=== PATIENT | female | born 1965 | race African-American/Black ===

== ENCOUNTER 2018-08-29 14:02 | Observation (INO) | payer BC ==
--- NOTE | 2018-08-29 14:18 | PDOC ---
Rapid Medical Evaluation Chief Complaint: Chest Pain Time Seen by Provider: 08/29/18 14:12 Medical Evaluation: Allergies Allergy/AdvReac Type Severity Reaction Status Date / Time egg Allergy Verified 08/29/18 14:14 gluten Allergy Verified 08/29/18 14:14 soy Allergy Verified 08/29/18 14:14 Vital Signs Temp Pulse Resp BP Pulse Ox 98.2 F 78 16 124/84 100 08/29/18 14:11 08/29/18 14:11 08/29/18 14:11 08/29/18 14:11 08/29/18 14:11 08/29/18 14:15 I have performed a brief in-person evaluation of this patient. The patient presents with a chief complaint of: chest pain and SOB for 2 months s/p cervical fusion on Jun. Saw PCP who is concerned about possible PE due to surgery. Denies SOB,dizziness, MCKINNEY, sweats. N/V Pertinent physical exam findings: no acute distress. heart RRR. lungs CTA b/l I have ordered the following: CBC/CMP/tropinins. D-dimer. CXR. EKG The patient will proceed to the ED for further evaluation. 08/29/18 14:18 Discharge Disposition - Diagnosis Chest pain Qualifiers: Chest pain type: unspecified Qualified Code(s): R07.9 - Chest pain, unspecified - Referrals - Patient Instructions - Post Discharge Activity
[2018-08-29 14:34] LABS: BASO % 0.5 % (0-2.0); EOS % 0.6 % (0-4.5); HEMATOCRIT 36.2 % (32.4-45.2); HEMOGLOBIN 11.8 GM/dL (10.7-15.3); LYMPH % 46.2 % (8-40); MCH 27.9 pg (25.7-33.7); MCHC 32.7 g/dl (32.0-36.0); MEAN CELL VOLUME 85.4 fl (80-96); MEAN PLT VOLUME 8.8 fl (7.5-11.1); MONO % 7.7 % (3.8-10.2); PLATELET COUNT 218 K/MM3 (134-434); RBC 4.23 M/mm3 (3.60-5.2); RDW 16.6 % (11.6-15.6); WHITE BLOOD COUNT 4.9 K/mm3 (4.0-10.0)
--- NOTE | 2018-08-29 14:42 | PDOC ---
History of Present Illness - General Chief Complaint: Chest Pain Stated Complaint: CHEST PAIN Time Seen by Provider: 08/29/18 14:12 History Source: Patient Exam Limitations: No Limitations - History of Present Illness Initial Comments: 08/29/18 14:44 53 year old with history of pericarditis (2013), GERD, dysmenorrhea, anemia, systolic heart murmurs and recent anterior cervical discectomy on June 13 who presents with L sided upper back pain radiating to the lower back. The pain is worse with movement and with palpation of the L back. The pain is described as sharp, stabbing, 8/10 pain and at night 10/10. She has some shortness of breath at night and when climbing stairs. The patient had this pain post- operatively and was treated with protonix with moderate relief. The patient's pain has continued but has not worsened since onset. She was evaluated previous and the pain was thought to be due to musculoskeletal pain. She does not actively more her limbs dude to her spinal history. The patient has neck herniation, spinal cord compression, concussion and lumbar hernation in Dec 2017 2/2 to fall. The patient went to PCP (Jose Francisco) today for the same L sided back pain ad PCP was concerned about r/o PE as the patient had recent surgery. At baseline the patient has some numbness and tingling in the R arm and now with intermittent L arm numbness and tingling since the June surgery. The patient denies chest pain, abdominal pain, nausea, vomiting, lightheadedness , syncope, headaches or recent fever. She has no other complaints at bedside. PMHX: as in HPI PSHX: see below Meds: see below Allergies: egg, gluten, soy Tob: none Etoh: none Rec drugs:none PCP: Osiel Past History - Past Medical History Allergies/Adverse Reactions: Allergies Allergy/AdvReac Type Severity Reaction Status Date / Time egg Allergy Verified 08/29/18 14:14 gluten Allergy Verified 08/29/18 14:14 soy Allergy Verified 08/29/18 14:14 - Suicide/Smoking/Psychosocial Hx Smoking History: Never smoked Have you smoked in the past 12 months: No Information on smoking cessation initiated: No Hx Alcohol Use: No Drug/Substance Use Hx: No Review of Systems - Review of Systems Able to Perform ROS?: Yes Is the patient limited Yi proficient: No Constitutional: No: Chills, Diaphoresis, Fever HEENTM: No: Blurred Vision, Tinnitus Respiratory: Yes: Shortness of Breath. No: Cough, Orthopnea Cardiac (ROS): No: Chest Pain, Palpitations, Chest Tightness ABD/GI: No: Constipated, Diarrhea, Nausea, Vomiting : No: Burning, Dysuria, Hematuria Musculoskeletal: Yes: Back Pain, Muscle Pain Neurological: Yes: See HPI, Numbness, Paresthesia, Tingling. No: Headache *Physical Exam - Vital Signs Last Vital Signs Temp Pulse Resp BP Pulse Ox 98.2 F 78 16 124/84 100 08/29/18 14:11 08/29/18 14:11 08/29/18 14:11 08/29/18 14:11 08/29/18 14:11 - Physical Exam Comments: 08/29/18 14:44 GENERAL: Awake, alert, and fully oriented, in no acute distress HEAD: No signs of trauma, normocephalic, atraumatic EYES: EOMI, sclera anicteric, conjunctiva clear ENT: Auricles normal inspection, hearing grossly normal, nares patent, oropharynx clear without exudates. Moist mucosa NECK: soft neck collar. LUNGS: No distress, speaks full sentences, clear to auscultation bilaterally HEART: Regular rate and rhythm, normal S1 and S2, no murmurs, rubs or gallops, peripheral pulses normal and equal bilaterally. ABDOMEN: Soft, nontender, normoactive bowel sounds. No guarding, no rebound. No masses BACK: + L upper back tenderness to palpation, baseline limited ROM of L and R shoulder, + approx L2/3 lumbar spine tenderness to palpation EXTREMITIES : Normal inspection, Normal range of motion, no edema. No clubbing or cyanosis. NEUROLOGICAL: Cranial nerves II through XII grossly intact. Normal speech, normal gait, no focal sensorimotor deficits SKIN: Warm, Dry, normal turgor, no rashes or lesions noted ED Treatment Course - LABORATORY CBC & Chemistry Diagram: 08/29/18 14:24 08/29/18 14:24 Medical Decision Making - Medical Decision Making 08/29/18 14:42 53 year old with history of pericarditis (2013), GERD, dysmenorrhea, anemia, systolic heart murmurs and recent anterior cervical discectomy on June 13 who presents with L sided upper back pain radiating to the lower back. The pain is worse with movement and with palpation of the L back. The pain is described as sharp, stabbing, 8/10 pain and at night 10/10. She has some shortness of breath at night and when climbinb stairs. The patient had this pain post- operatively and was treated with protonix with moderate relief. The patient's pain has continued but has not worsened since onset. She was evaluated previous and the pain was thought to be due to musculoskeletal pain. She does not actively more her limbs dude to her spinal history. The patient has neck herniation, spinal cord compression, concussion and lumbar hernation in Dec 2017 2/ to fall. The patient went to PCP (Jose Francisco) today for the same L sided back pain ad PCP was concerned about r/o PE as the patient had recent surgery. The patient denies chest pain, abdominal pain, nausea, vomiting, lightheadedness, syncope, headaches or recent fever. She has no other complaints at bedside. DDX including but not limited to: ACS vs musculoskeletal vs PE vs pleuritis W/U: - cbc, cmp, cardiac profile - CXR Scores: PERC:1, ED Course: EKG normal sinus rhythm HR 62, no interval abnormalities, narrow QRS, ST and T wave segments and morphology normal. QTc 414 ms. 08/29/18 16:02 D-dimer: 4002 CTA chest ordered. 08/29/18 18:50 CTA: small pulmonary emboli within subsegmental branches or R lower lobe pulm artery, posteriorly. PCP: Juna contacted to evaluate if PCP would like to follow patient outpt or if admission is desired. Patient is hemodynamically stable. Lovenox 100mg administered. 08/29/18 19:32 *DC/Admit/Observation/Transfer Diagnosis at time of Disposition: Back pain - Discharge Dispostion Disposition: HOME Condition at time of disposition: Stable - Referrals Referrals: Aminata Felton MD [Primary Care Provider] - - Patient Instructions Printed Discharge Instructions: DI for Atypical Chest Pain Additional Instructions: You were seen in the ED for complaints of L back pain. In the ED you were evaluated with labwork and imaging. Your results were unremarkable. There does not appear to be an acute need for immediate hospitalization. You are advised to follow up with your Primary Care Physician within 1 week. You were given a referral to You were given a prescription for Return to the ED immediately if you experience worsening chest pain, shortness of breath, back pain, syncope, palpitations, sweating, loss of consciousness or nausea. - Post Discharge Activity
[2018-08-29 15:11] LABS: ALBUMIN 3.9 g/dl (3.4-5.0); ALK PHOS 136 U/L (45-117); ANION GAP 6 MMOL/L (8-16); BILIRUBIN,TOTAL 0.5 mg/dL (0.2-1); BLOOD UREA NITROGEN 10 mg/dL (7-18); CALCIUM 8.9 mg/dL (8.5-10.1); CHLORIDE 106 mmol/L (98-107); CO2 26 mmol/L (21-32); CREATININE 0.8 mg/dL (0.55-1.3); GLUCOSE,RANDOM 89 mg/dL (74-106); POTASSIUM 3.7 mmol/L (3.5-5.1); SGOT/AST 25 U/L (15-37); SGPT/ALT 35 U/L (13-61); SODIUM 138 mmol/L (136-145); TOT PROT 8.2 g/dl (6.4-8.2)
--- NOTE | 2018-08-29 16:21 | PDOC ---
Attending Attestation - Resident Resident Name: Marie Chavez - ED Attending Attestation I have performed the following: I have examined & evaluated the patient, The case was reviewed & discussed with the resident, I agree w/resident's findings & plan - HPI HPI: 08/29/18 16:16 53y/o F h/o pericarditis, GERD, s/p cervical discectomy 06/24 p/w atypical and pleuritic L chest pain, no cough/palpitations. - Physicial Exam PE: 08/29/18 16:16 VSS, no tachycardia, c-collar in place alert, conversant, nad no jvd s1s2 rrr, no murmur or rub ctab, no wheeze or crackles no edema/calf ttp - Medical Decision Making 08/29/18 16:21 53-year-old female presents with atypical left pleuritic chest discomfort, atypical for ACS, question pericarditis versus pleuritis versus infectious process, rule out PE given recent post-op status. ekg wnl, no findings suggestive of pericarditis labs including ddimer cxr bedside sono to r/o pericardial effusion reassess and dispo accordingly. 08/29/18 16:24 trop negative, no leukocytosis, ddimer elevated. CTA chest then dispo to f/u with Dr. Rocha Heart Score/ECG Review #1 ECG reviewed & interpreted by me at: 14:03 General ECG Interpretation: Sinus Rhythm, Normal Rate (62), Normal Intervals ( qtc 414), No acute ischemic changes
[2018-08-29] MEDS ORDERED: ENOXAPARIN NA (PORCINE) 100 MG/1 ML DISP.SYRIN SQ ONE ×2 (18:57→20:28)
[2018-08-29] MEDS ORDERED: ACETAMINOPHEN 500 MG TABLET (FP) PO ONE (20:10)
--- NOTE | 2018-08-29 20:10 | PDOC ---
*Physical Exam - Vital Signs Last Vital Signs Temp Pulse Resp BP Pulse Ox 98.2 F 78 16 124/84 100 08/29/18 14:11 08/29/18 14:11 08/29/18 14:11 08/29/18 14:11 08/29/18 14:11 - Physical Exam Comments: 08/30/18 20:05 General Appearance: Nourished. No Apparent Distress HEENT: No Pharyngeal Erythema, Tonsillar Exudate, Tonsillar Erythema Neck: No Cervical Lymphadenopathy Respiratory/Chest: Lungs Clear, Normal Breath Sounds. No Crackles, Rales, Rhonchi, Wheezing Cardiovascular: Regular Rhythm, Regular Rate. No Murmur, Gallops, Rubs Gastrointestinal/Abdominal: Normal Bowel Sounds, Soft. No Guarding, Rebound, Tenderness Musculoskeletal: No CVA Tenderness Extremity: Normal Capillary Refill Integumentary: Normal Color, Dry, Warm Neurologic: Fully Oriented, Alert, Normal Mood/Affect, Normal Response, ED Treatment Course - LABORATORY CBC & Chemistry Diagram: 08/30/18 10:13 08/30/18 10:13 - ADDITIONAL ORDERS Additional order review: Laboratory Results 08/29/18 08/29/18 14:24 14:24 D-Dimer 4007 H Sodium 138 Potassium 3.7 Chloride 106 Carbon Dioxide 26 Anion Gap 6 L BUN 10 Creatinine 0.8 Creat Clearance w eGFR > 60 Random Glucose 89 Calcium 8.9 Total Bilirubin 0.5 AST 25 ALT 35 Alkaline Phosphatase 136 H Creatine Kinase 96 Troponin I < 0.02 Total Protein 8.2 Albumin 3.9 08/29/18 14:24 RBC 4.23 MCV 85.4 MCHC 32.7 RDW 16.6 H MPV 8.8 Neutrophils % 45.0 Lymphocytes % 46.2 H Monocytes % 7.7 Eosinophils % 0.6 Basophils % 0.5 Progress Note - Progress Note Progress Note: The patient is a 53 year old female with a complicated medical history who presented for back pain found to have a PE. The patient is pending discussion with the patient's primary care provider. Medical Decision Making - Medical Decision Making 08/29/18 20:06 We discussed the case with the patient's primary care provider who would be more comfortable admitting to the patient for further management as the patient has a history of non-compliance. We discussed the case with the admitting team who accepted the patient for admission. *DC/Admit/Observation/Transfer Diagnosis at time of Disposition: Back pain Qualifiers: Back pain location: back pain in unspecified location Chronicity: unspecified Back pain laterality: unspecified Qualified Code(s): M54.9 - Dorsalgia, unspecified Pulmonary embolism Qualifiers: Pulmonary embolism type: other Chronicity: unspecified Acute cor pulmonale presence: without acute cor pulmonale Qualified Code(s): I26.99 - Other pulmonary embolism without acute cor pulmonale - Discharge Dispostion Condition at time of disposition: Stable Decision to Admit order: Yes - Referrals - Patient Instructions - Post Discharge Activity
[2018-08-29] MEDS ORDERED: ACETAMINOPHEN 325 MG TABLET (FP) ONE (20:28)
--- NOTE | 2018-08-30 01:29 | HP ---
CHIEF COMPLAINT: L upper back pain PCP: Jose Francisco HISTORY OF PRESENT ILLNESS: This is a 53 year old female with a past medical history of recent anterior cervical discectomy in June who presented to the ED with Left upper back pain radiating to her lower back intermittently since the surgery. She was treated with protonix postoperatively with some relief. she presented to her PCP today who sent her in to r/o PE. ER course was notable for: (1) CTA with PE Recent Travel: pt denies PAST MEDICAL HISTORY: neck herniation, spinal cord compression, concussion and lumbar herniation in Dec 2017 secondary to fall with resultant post concussive syndrome; pericarditis 2013, GERD, dysmenorrhea, anemia, heart murmur PAST SURGICAL HISTORY: anterior cervical discectomy June 2018 tubal ligation Social History: Smoking: pt denies Alcohol: pt denies Drugs: pt denies Family History: mother with HTN, father with HTN sister with childhood asthma one son with childhood asthma Allergies egg Allergy (Verified 08/29/18 14:14) gluten Allergy (Verified 08/29/18 14:14) soy Allergy (Verified 08/29/18 14:14) HOME MEDICATIONS: 3 Medication Instructions Recorded Donepezil HCl [Aricept] 5 mg PO HS 08/29/18 Methocarbamol [Robaxin -] 250 mg PO HS 08/29/18 Omeprazole Magnesium [Prilosec Otc] 20 mg PO DAILY 08/29/18 Pregabalin [Lyrica] 50 mg PO DAILY 08/29/18 Topiramate [Topamax] 25 mg PO HS 08/29/18 REVIEW OF SYSTEMS CONSTITUTIONAL: Absent: fever, chills, diaphoresis, generalized weakness, malaise, loss of appetite, weight change HEENT: Absent: rhinorrhea, nasal congestion, throat pain, throat swelling, difficulty swallowing, mouth swelling, ear pain, eye pain, visual changes CARDIOVASCULAR: Absent: chest pain, syncope, palpitations, irregular heart rate, lightheadedness , peripheral edema RESPIRATORY: Absent: cough, shortness of breath, dyspnea with exertion, orthopnea, wheezing, stridor, hemoptysis GASTROINTESTINAL: Absent: abdominal pain, abdominal distension, nausea, vomiting, diarrhea, constipation, melena, hematochezia GENITOURINARY: Absent: dysuria, frequency, urgency, hesitancy, hematuria, flank pain, genital pain MUSCULOSKELETAL: Present: back pain Absent: myalgia, arthralgia, joint swelling, neck pain SKIN: Absent: rash, itching, pallor HEMATOLOGIC/IMMUNOLOGIC: Absent: easy bleeding, easy bruising, lymphadenopathy, frequent infections ENDOCRINE: Absent: unexplained weight gain, unexplained weight loss, heat intolerance, cold intolerance NEUROLOGIC: Absent: headache, focal weakness or paresthesias, dizziness, unsteady gait, seizure, mental status changes, bladder or bowel incontinence PSYCHIATRIC: Absent: anxiety, depression, suicidal or homicidal ideation, hallucinations. PHYSICAL EXAMINATION Vital Signs - 24 hr 3 08/29/18 08/29/18 14:11 19:30 Temperature 98.2 F Pulse Rate 78 Pulse Rate [ 74 Radial] Respiratory 16 20 Rate Blood Pressure 124/84 Blood Pressure 122/81 [Left Arm] O2 Sat by Pulse 100 100 Oximetry (%) GENERAL: Awake, alert, and fully oriented, in no acute distress. HEAD: Normal with no signs of trauma. EYES: Pupils equal, round and reactive to light, extraocular movements intact, sclera anicteric, conjunctiva clear. No lid lag. EARS, NOSE, THROAT: Ears normal, nares patent, oropharynx clear without exudates. Moist mucous membranes. NECK: Normal range of motion, supple without lymphadenopathy, JVD, or masses. soft cervical collar in place LUNGS: Breath sounds equal, clear to auscultation bilaterally. No wheezes, and no crackles. No accessory muscle use. HEART: Regular rate and rhythm, normal S1 and S2 without murmur, rub or gallop. ABDOMEN: Soft, nontender, not distended, normoactive bowel sounds, no guarding, no rebound, no masses. No hepatomegaly or splenomegaly. MUSCULOSKELETAL: Normal range of motion at all joints. No bony deformities or tenderness. No CVA tenderness. UPPER EXTREMITIES: 2+ pulses, warm, well-perfused. No cyanosis. No clubbing. No peripheral edema. LOWER EXTREMITIES: 2+ pulses, warm, well-perfused. No calf tenderness. No peripheral edema. NEUROLOGICAL: Cranial nerves II-XII intact. Normal speech. PSYCHIATRIC: Cooperative. Good eye contact. Appropriate mood and affect. SKIN: Warm, dry, normal turgor, no rashes or lesions noted, normal capillary refill. Laboratory Results - last 24 hr 3 08/29/18 08/29/18 08/29/18 14:24 14:24 14:24 WBC 4.9 RBC 4.23 Hgb 11.8 Hct 36.2 MCV 85.4 MCH 27.9 MCHC 32.7 RDW 16.6 H Plt Count 218 MPV 8.8 Absolute Neuts (auto) 2.2 Neutrophils % 45.0 Lymphocytes % 46.2 H Monocytes % 7.7 Eosinophils % 0.6 Basophils % 0.5 Nucleated RBC % 0 D-Dimer 4007 H Sodium 138 Potassium 3.7 Chloride 106 Carbon Dioxide 26 Anion Gap 6 L BUN 10 Creatinine 0.8 Creat Clearance w eGFR > 60 Random Glucose 89 Calcium 8.9 Total Bilirubin 0.5 AST 25 ALT 35 Alkaline Phosphatase 136 H Creatine Kinase 96 Troponin I < 0.02 Total Protein 8.2 Albumin 3.9 ECG normal sinus rhythm vent rate 62, QTC 414 low voltage QRS no acute ST/T wave changes Radiology Reports CTA IMPRESSION: Small pulmonary emboli within the subsegmental branches of the right lower lobe pulmonary artery, posteriorly. No gross pulmonary embolus in the main pulmonary artery and its proximal branches, bilaterally. No enlarged mediastinal or hilar lymph nodes are identified. No acute lung disease is present. Reported By: Matt Rodriguez MD 08/29/18 1831 Chest PA/Lat Impression Unremarkable examination without evidence of acute lung disease. Reported By: Matt Rodriguez MD 08/29/18 1644 ASSESSMENT/PLAN: 53yF with PMH neck herniation, spinal cord compression, concussion and lumbar herniation in Dec 2017 secondary to fall with resultant post concussive syndrome ; anterior discectomy 06/2018, pericarditis 2013, GERD, dysmenorrhea, anemia, heart murmur presented to the ED with left upper back pain radiating to her lower back. PE - given lovenox in ED - will start pt on Eliquis in am, 10mg BID x 7 days then 5mg BID - consider hematology consult GERD - home omeprazole changed to formulary protonix Neck pain s/p anterior cervical discectomy - cont home robaxin, lyrica, tylenol DVT PPX - started on eliquis FEN - tolerating po - BMP in am - regular diet as tolerated Dispo: pt requires further observation. Visit type - Emergency Visit Emergency Visit: Yes ED Registration Date: 08/29/18 Care time: The patient presented to the Emergency Department on the above date and was hospitalized for further evaluation of their emergent condition. - New Patient This patient is new to me today: Yes Date on this admission: 08/29/18 - Critical Care Critical Care patient: No
[2018-08-30] MEDS ORDERED: PREGABALIN 50 MG CAPSULE PO PRN (02:01)
[2018-08-30] MEDS ORDERED: METHOCARBAMOL 500 MG TABLET ONE (02:23)
[2018-08-30] MEDS: TOPIRAMATE 25 MG TABLET (FP) PO SCH ×2 (02:29→22:32)
[2018-08-30] MEDS: METHOCARBAMOL 500 MG TABLET PO SCH ×2 (02:29→22:32)
[2018-08-30] MEDS ORDERED: TOPIRAMATE 25 MG TABLET (FP) ONE (02:33)
[2018-08-30] MEDS ORDERED: ACETAMINOPHEN 325 MG TABLET (FP) ONE (06:14)
[2018-08-30] MEDS: ACETAMINOPHEN 500 MG TABLET (FP) PO SCH ×3 (06:43→22:33)
[2018-08-30] MEDS ORDERED: diphenhydrAMINE HCL 25 MG CAPSULE (FP) PO PRN (10:09)
[2018-08-30 10:25] LABS: BASO % 0.6 % (0-2.0); EOS % 0.8 % (0-4.5); HEMATOCRIT 33.5 % (32.4-45.2); HEMOGLOBIN 11.1 GM/dL (10.7-15.3); LYMPH % 42.2 % (8-40); MCH 28.2 pg (25.7-33.7); MCHC 33.1 g/dl (32.0-36.0); MEAN CELL VOLUME 85.1 fl (80-96); MEAN PLT VOLUME 9.3 fl (7.5-11.1); MONO % 8.7 % (3.8-10.2); NEUT % 47.7 % (42.8-82.8); PLATELET COUNT 210 K/MM3 (134-434); RBC 3.94 M/mm3 (3.60-5.2); RDW 16.1 % (11.6-15.6); WHITE BLOOD COUNT 4.6 K/mm3 (4.0-10.0)
[2018-08-30] MEDS ORDERED: diphenhydrAMINE HCL 12.5 MG/5 ML BULK BOTTLE ONE (10:43)
[2018-08-30 10:54] LABS: ANION GAP 8 MMOL/L (8-16); BLOOD UREA NITROGEN 13 mg/dL (7-18); CALCIUM 8.6 mg/dL (8.5-10.1); CHLORIDE 106 mmol/L (98-107); CO2 26 mmol/L (21-32); CREATININE 0.8 mg/dL (0.55-1.3); GLUCOSE,RANDOM 118 mg/dL (74-106); MAGNESIUM 2.2 mg/dL (1.8-2.4); PHOSPHOROUS 2.9 mg/dL (2.5-4.9); POTASSIUM 3.7 mmol/L (3.5-5.1); SODIUM 140 mmol/L (136-145)
[2018-08-30] MEDS: PANTOPRAZOLE 20 MG TABLET (FP) PO SCH (10:54)
[2018-08-30] MEDS: APIXABAN 5 MG TABLET PO SCH ×2 (10:54→22:32)
--- NOTE | 2018-08-30 11:49 | CONSULT ---
Consultation: REQUESTING PROVIDER: Dr. Morocho CONSULT REQUEST: We have been asked to medically evaluate this patient for pulmonology evaluation for PE. HISTORY OF PRESENT ILLNESS: 53 yo Female with PMH GERD, Dysmenorrhea, Anemia, recent anterior cervical discectomy in June of this year, admitted with a complaint of left sided back pain which is worse with deep inspiration and a dry cough. She suffered a fall in November of this year and has had back pain and neck pain since. 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 She states that she has had this discomfort off and on since the surgery, it occasionally wakes her up at night and she decribes those episodes as 10/10 pain. She states she saw two doctors as an outpatient and was treated for GERD with some improvement of symptoms and was also treated for musculoskeletal pain again with minimal improvement of symptoms. She went for another opinion and was sent in by that physician with a concern for a PE. She denies any fever, chills, calf swelling or tenderness. She denies any family history of clotting disorders or any DVT or PEs in the past. REVIEW OF SYSTEMS: CONSTITUTIONAL: Absent: fever, chills, diaphoresis, generalized weakness, malaise, loss of appetite, weight change HEENT: Absent: rhinorrhea, nasal congestion, throat pain, throat swelling, difficulty swallowing, mouth swelling, ear pain, eye pain, visual changes CARDIOVASCULAR: Absent: chest pain, syncope, palpitations, irregular heart rate, lightheadedness , peripheral edema RESPIRATORY: cough Absent: , shortness of breath, dyspnea with exertion, orthopnea, wheezing, stridor, hemoptysis GASTROINTESTINAL: Absent: abdominal pain, abdominal distension, nausea, vomiting, diarrhea, constipation, melena, hematochezia GENITOURINARY: Absent: dysuria, frequency, urgency, hesitancy, hematuria, flank pain, genital pain MUSCULOSKELETAL: back pain, neck pain Absent: myalgia, arthralgia, joint swelling, SKIN: Absent: rash, itching, pallor HEMATOLOGIC/IMMUNOLOGIC: Absent: easy bleeding, easy bruising, lymphadenopathy, frequent infections ENDOCRINE: Absent: unexplained weight gain, unexplained weight loss, heat intolerance, cold intolerance NEUROLOGIC: Absent: headache, focal weakness or paresthesias, dizziness, unsteady gait, seizure, mental status changes, bladder or bowel incontinence PSYCHIATRIC: Absent: anxiety, depression, suicidal or homicidal ideation, hallucinations. PHYSICAL EXAMINATION Vital Signs - 24 hr 08/29/18 08/29/18 08/30/18 14:11 19:30 10:50 Temperature 98.2 F 98.2 F Pulse Rate 78 85 Pulse Rate [ 74 Radial] Respiratory 16 20 18 Rate Blood Pressure 124/84 105/70 Blood Pressure 122/81 [Left Arm] O2 Sat by Pulse 100 100 Oximetry (%) GENERAL: A&O, no acute distress HEENT: normocephalic atraumatic, moist mucus membranes NECK: supple without lymphadenopathy LUNGS: CTA b/l, no rhonchi or wheezes HEART: Regular rate and rhythm, normal S1 and S2 ABDOMEN: Soft, nontender, not distended, normoactive bowel sounds MUSCULOSKELETAL: No spinal point tenderness EXTREMITIES: 2+ pulses, no calf tenderness or swelling Laboratory Results - last 24 hr 08/29/18 08/29/18 08/29/18 14:24 14:24 14:24 WBC 4.9 RBC 4.23 Hgb 11.8 Hct 36.2 MCV 85.4 MCH 27.9 MCHC 32.7 RDW 16.6 H Plt Count 218 MPV 8.8 Absolute Neuts (auto) 2.2 Neutrophils % 45.0 Lymphocytes % 46.2 H Monocytes % 7.7 Eosinophils % 0.6 Basophils % 0.5 Nucleated RBC % 0 D-Dimer 4007 H Sodium 138 Potassium 3.7 Chloride 106 Carbon Dioxide 26 Anion Gap 6 L BUN 10 Creatinine 0.8 Creat Clearance w eGFR > 60 Random Glucose 89 Calcium 8.9 Phosphorus Magnesium Total Bilirubin 0.5 AST 25 ALT 35 Alkaline Phosphatase 136 H Creatine Kinase 96 Troponin I < 0.02 Total Protein 8.2 Albumin 3.9 08/30/18 08/30/18 10:13 10:13 WBC 4.6 RBC 3.94 Hgb 11.1 Hct 33.5 MCV 85.1 MCH 28.2 MCHC 33.1 RDW 16.1 H Plt Count 210 MPV 9.3 Absolute Neuts (auto) 2.2 Neutrophils % 47.7 Lymphocytes % 42.2 H Monocytes % 8.7 Eosinophils % 0.8 Basophils % 0.6 Nucleated RBC % 0 D-Dimer Sodium 140 Potassium 3.7 Chloride 106 Carbon Dioxide 26 Anion Gap 8 BUN 13 Creatinine 0.8 Creat Clearance w eGFR > 60 Random Glucose 118 H Calcium 8.6 Phosphorus 2.9 Magnesium 2.2 Total Bilirubin AST ALT Alkaline Phosphatase Creatine Kinase Troponin I Total Protein Albumin Active Medications Generic Name Dose Route Start Last Admin Trade Name Freq PRN Reason Stop Dose Admin Acetaminophen 500 mg 08/30/18 06:00 08/30/18 06:43 Tylenol - PO 500 mg TID JESSICA Administration Apixaban 10 mg 08/30/18 10:00 08/30/18 10:54 Eliquis - PO 09/06/18 09:59 10 mg BID JESSICA Administration Diphenhydramine HCl 12.5 mg 08/30/18 10:09 08/30/18 10:55 Benadryl - PO 12.5 mg Q6H PRN Administration FOR ITCHING Donepezil HCl 5 mg 08/30/18 22:00 Aricept - PO HS JESSICA Methocarbamol 250 mg 08/30/18 02:01 08/30/18 02:29 Robaxin - PO 250 mg HS JESSICA Administration Pantoprazole Sodium 20 mg 08/30/18 10:00 08/30/18 10:54 Protonix - PO 20 mg DAILY JESSICA Administration Pregabalin 50 mg 08/30/18 02:01 Lyrica - PO DAILY PRN PAIN LEVEL 4 - 6 Topiramate 25 mg 08/30/18 02:01 08/30/18 02:29 Topamax - PO 25 mg HS JESSICA Administration ASSESSMENT/PLAN: 53 yo Female with PMH GERD, Dysmenorrhea, Anemia, recent anterior cervical discectomy in June of this year, admitted with a complaint of left sided back pain which is worse with deep inspiration and a dry cough, found to have small subsegmental PE in RLL Provoked PE -Likely provoked - Post-op with symptoms since June -CT noted with small subsegmental Pulmonary embolus in branches of RLL posteriorly -Eliquis 10 mg PO BID for one week then 5 mg PO BID for 3 months -ECHO ordered -Duplex ordered GERD -Protonix Neck/Back Pain -Continue home meds -Robaxin 250 mg PO HS -Lyrica 25 mg PO Daily -Tylenol PRN FEN -none -no abnormalities, BMP in AM -Gluten restricted Diet Prophylaxis -Eliquis as above Dispo: We will continue to follow the patient. Thank you for this consultative opportunity. Visit type - Emergency Visit Emergency Visit: Yes ED Registration Date: 08/29/18 Care time: The patient presented to the Emergency Department on the above date and was hospitalized for further evaluation of their emergent condition. - New Patient This patient is new to me today: Yes Date on this admission: 08/30/18 - Critical Care Critical Care patient: No
--- NOTE | 2018-08-30 13:04 | PN ---
Progress Note, Physician - Current Medication List Current Medications: Active Medications Acetaminophen (Tylenol -) 500 mg PO TID [facility] Last Admin: 08/30/18 06:43 Dose: 500 mg Apixaban (Eliquis -) 10 mg PO BID [facility] Stop: 09/06/18 09:59 Last Admin: 08/30/18 10:54 Dose: 10 mg Diphenhydramine HCl (Benadryl -) 12.5 mg PO Q6H PRN PRN Reason: FOR ITCHING Last Admin: 08/30/18 10:55 Dose: 12.5 mg Donepezil HCl (Aricept -) 5 mg PO HS [facility] Methocarbamol (Robaxin -) 250 mg PO [facility] Last Admin: 08/30/18 02:29 Dose: 250 mg Pantoprazole Sodium (Protonix -) 20 mg PO DAILY [facility] Last Admin: 08/30/18 10:54 Dose: 20 mg Pregabalin (Lyrica -) 50 mg PO DAILY PRN PRN Reason: PAIN LEVEL 4 - 6 Topiramate (Topamax -) 25 mg PO [facility] Last Admin: 08/30/18 02:29 Dose: 25 mg - Objective Vital Signs: Vital Signs Temperature 98.2 F 08/30/18 10:50 Pulse Rate 85 08/30/18 10:50 Respiratory Rate 18 08/30/18 10:50 Blood Pressure 105/70 08/30/18 10:50 O2 Sat by Pulse Oximetry (%) 100 08/30/18 10:50 Labs: CBC, BMP 08/30/18 10:13 08/30/18 10:13
--- NOTE | 2018-08-30 13:04 | HP ---
Admitting History and Physical - Smoking History Smoking history: Never smoked Have you smoked in the past 12 months: No - Alcohol/Substance Use Hx Alcohol Use: No Home Medications - Allergies Allergies/Adverse Reactions: Allergies Allergy/AdvReac Type Severity Reaction Status Date / Time egg Allergy Verified 08/29/18 14:14 gluten Allergy Verified 08/29/18 14:14 soy Allergy Verified 08/29/18 14:14 - Home Medications Home Medications: Ambulatory Orders Donepezil HCl [Aricept] 5 mg PO HS 08/29/18 Methocarbamol [Robaxin -] 250 mg PO HS 08/29/18 Omeprazole Magnesium [Prilosec Otc] 20 mg PO DAILY 08/29/18 Pregabalin [Lyrica] 25 mg PO DAILY 08/29/18 Topiramate [Topamax] 25 mg PO HS 08/29/18 Physical Examination Vital Signs: Vital Signs Temperature 98.2 F 08/30/18 10:50 Pulse Rate 85 08/30/18 10:50 Respiratory Rate 18 08/30/18 10:50 Blood Pressure 105/70 08/30/18 10:50 O2 Sat by Pulse Oximetry (%) 100 08/30/18 10:50 Labs: CBC, BMP 08/30/18 10:13 08/30/18 10:13
--- NOTE | 2018-08-30 15:16 | EKG ---
Test Reason : Blood Pressure : / mmHG Vent. Rate : 062 BPM Atrial Rate : 062 BPM P-R Int : 170 ms QRS Dur : 076 ms QT Int : 408 ms P-R-T Axes : 076 028 058 degrees QTc Int : 414 ms NORMAL SINUS RHYTHM LOW VOLTAGE QRS BORDERLINE ECG NO PREVIOUS ECGS AVAILABLE Confirmed by LILIANA HI MD ([id number]) on 08/30/2018 3:16:00 PM Referred By: Confirmed By:LILIANA HI MD
--- NOTE | 2018-08-30 15:25 | PN ---
Teaching Attending Note Name of Resident: Sam Obando ATTENDING PHYSICIAN STATEMENT I saw and evaluated the patient. I reviewed the resident's note and discussed the case with the resident. I agree with the resident's findings and plan as documented. PULMONARY IMP RLL SUBSEGMENTAL PE PROVOKED S/P C-SPINE SURGERY H/O PERICARDITIS PLAN ELIQUIS DUPLEX LOWER EXT ECHO DR SANDRA Problem List - Problems (1) Pulmonary embolism Code(s): I26.99 - OTHER PULMONARY EMBOLISM WITHOUT ACUTE COR PULMONALE Qualifiers: Pulmonary embolism type: other Chronicity: unspecified Acute cor pulmonale presence: without acute cor pulmonale Qualified Code(s): I26.99 - Other pulmonary embolism without acute cor pulmonale
--- NOTE | 2018-08-30 16:39 | ECHO ---
Name: EVAN WHARTON Exam:Adult Echocardiogram Study Date: 08/30/2018 03:18 PM Age: 53 yrs Reason For Study: Pulmonary Embolism Height: 70 in Weight: 205 lb BSA: 2.1 m2 MMode/2D Measurements & Calculations IVSd: 0.88 cm Ao root diam: 2.5 cm LVIDd: 4.3 cm LA dimension: 2.7 cm LVIDs: 3.0 cm LVPWd: 0.89 cm EDV(Teich): 81.7 ml LVOT diam: 2.0 cm ESV(Teich): 36.1 ml TAPSE: 2.4 cm RV S Khurram: 11.2 cm/sec Doppler Measurements & Calculations MV E max khurram: 59.7 cm/sec Med Peak E' Khurram: 7.5 cm/sec MV A max khurram: 66.5 cm/sec Med E/e': 8.0 MV E/A: 0.90 Lat Peak E' Khurram: 12.9 cm/sec MV dec time: 0.24 sec Lat E/e': 4.6 Procedure A two-dimensional transthoracic echocardiogram with color flow and Doppler was performed. The study w as technically difficult with many images being suboptimal in quality. Left Ventricle The left ventricular size, thickness and function are normal. The left ventricular ejection fraction is normal. E/A reversal consistent with but not diagnostic of poor LV compliance. The left ventricular w all motion is normal. Right Ventricle The right ventricle is not well visualized. The right ventricle is mildly dilated. The right ventricu lar systolic function is mildly reduced. Atria Normal left and right atrial size and function. Tricuspid Valve The tricuspid valve is not well visualized. There is no tricuspid stenosis. There was insufficient TR detected to calculate RV systolic pressure. Aortic Valve The aortic valve is normal in structure and function. Great Vessels The aortic root is normal size. Pericardium/Pleura There is no pericardial effusion. Interpretation Summary The left ventricular size, thickness and function are normal The left ventricular ejection fraction is normal. The left ventricular wall motion is normal. E/A reversal consistent with but not diagnostic of poor LV compliance The right ventricle is not well visualized. The tricuspid valve is not well visualized. There was insufficient TR detected to calculate RV systolic pressure. The study was technically difficult with many images being suboptimal in quality. The right ventricle is mildly dilated. The right ventricular systolic function is mildly reduced. MD John Shahid 08/30/2018 04:38 PM
[2018-08-30 17:42] VITALS: BMI 29.2
[2018-08-30] MEDS: DONEPEZIL HCL 5 MG TABLET (FP) PO SCH (22:33)
[2018-08-31] MEDS: ACETAMINOPHEN 500 MG TABLET (FP) PO SCH ×3 (05:53→22:27)
[2018-08-31 10:20] LABS: BASO % 0.6 % (0-2.0); EOS % 1.4 % (0-4.5); HEMATOCRIT 31.7 % (32.4-45.2); HEMOGLOBIN 10.5 GM/dL (10.7-15.3); LYMPH % 49.3 % (8-40); MCH 28.4 pg (25.7-33.7); MCHC 33.1 g/dl (32.0-36.0); MEAN CELL VOLUME 86.1 fl (80-96); MEAN PLT VOLUME 9.3 fl (7.5-11.1); MONO % 9.7 % (3.8-10.2); PLATELET COUNT 205 K/MM3 (134-434); RBC 3.69 M/mm3 (3.60-5.2); RDW 16.2 % (11.6-15.6); WHITE BLOOD COUNT 4.7 K/mm3 (4.0-10.0)
--- NOTE | 2018-08-31 10:42 | DS ---
Physical Examination Vital Signs: Vital Signs Temperature 98.3 F 08/31/18 05:00 Pulse Rate 69 08/31/18 05:00 Respiratory Rate 18 08/31/18 05:00 Blood Pressure 105/58 L 08/31/18 05:00 O2 Sat by Pulse Oximetry (%) 99 08/31/18 02:00 Constitutional: Yes: No Distress, Calm Cardiovascular: Yes: Regular Rate and Rhythm Respiratory: Yes: CTA Bilaterally Gastrointestinal: Yes: Normal Bowel Sounds, Soft. No: Tenderness Edema: No Labs: CBC, BMP 08/31/18 09:55 Discharge Summary Reason For Visit: PULMONARY EMBOLISM Current Active Problems Back pain (Acute) Pulmonary embolism (Acute) Hospital Course: Admitted for left upper back pain - found to have PE in CTA chest Seen by Pulmonary-- as this is provoked PE-- she needs treatment with Eliquis x 3 months Echo-- mild reduced LV systolic function Doppler legs- negative for DVT Stable for dc home- follow up with PMD and Neurology repeat Echo in 3 months after completion of Eliquis Condition: Stable - Instructions Diet, Activity, Other Instructions: Echo in 3 months after completion of Eliquis -- follow up Referrals: Aminata Felton MD [Primary Care Provider] - Disposition: HOME - Home Medications Comprehensive Discharge Medication List: Ambulatory Orders Donepezil HCl [Aricept] 5 mg PO HS 08/29/18 Methocarbamol [Robaxin -] 250 mg PO HS 08/29/18 Omeprazole Magnesium [Prilosec Otc] 20 mg PO DAILY 08/29/18 Pregabalin [Lyrica] 25 mg PO DAILY 08/29/18 Topiramate [Topamax] 25 mg PO HS 08/29/18 Apixaban [Eliquis -] 10 mg PO BID #90 tablet 08/31/18
[2018-08-31] MEDS: APIXABAN 5 MG TABLET PO SCH ×2 (10:46→22:26)
[2018-08-31] MEDS: PANTOPRAZOLE 20 MG TABLET (FP) PO SCH (10:46)
[2018-08-31 10:49] LABS: ANION GAP 5 MMOL/L (8-16); BLOOD UREA NITROGEN 14 mg/dL (7-18); CALCIUM 8.6 mg/dL (8.5-10.1); CHLORIDE 108 mmol/L (98-107); CO2 25 mmol/L (21-32); CREATININE 0.8 mg/dL (0.55-1.3); GLUCOSE,RANDOM 97 mg/dL (74-106); POTASSIUM 3.8 mmol/L (3.5-5.1); SODIUM 139 mmol/L (136-145)
--- NOTE | 2018-08-31 10:52 | PN ---
Progress Note (short form) - Note Progress Note: PULMONARY Denies shortness of breath or chest pain. LE dopplers negative. Echo with mildly reduced RV function. Vital Signs Period Temp Pulse Resp BP Sys/Carrillo Pulse Ox Last 24 Hr 97.9 F-98.4 F 64-79 18-18 100-130/58-74 99-99 Intake & Output 08/28/18 08/29/18 08/30/18 08/31/18 23:59 23:59 23:59 23:59 Intake Total 0 250 Balance 0 250 Weight 92.986 kg 92.306 kg Gen: NAD at rest Heart: RRR Lung: decreased breath sounds at the bases Abd: soft, nontender Ext: no edema CBC, BMP 08/31/18 09:55 08/31/18 09:55 Active Medications Acetaminophen (Tylenol -) 500 mg PO TID [facility] Last Admin: 08/31/18 05:53 Dose: 500 mg Apixaban (Eliquis -) 10 mg PO BID [facility] Stop: 09/06/18 09:59 Last Admin: 08/31/18 10:46 Dose: 10 mg Diphenhydramine HCl (Benadryl -) 12.5 mg PO Q6H PRN PRN Reason: FOR ITCHING Last Admin: 08/30/18 10:55 Dose: 12.5 mg Donepezil HCl (Aricept -) 5 mg PO [facility] Last Admin: 08/30/18 22:33 Dose: 5 mg Methocarbamol (Robaxin -) 250 mg PO [facility] Last Admin: 08/30/18 22:32 Dose: 250 mg Pantoprazole Sodium (Protonix -) 20 mg PO DAILY [facility] Last Admin: 08/31/18 10:46 Dose: 20 mg Pregabalin (Lyrica -) 50 mg PO DAILY PRN PRN Reason: PAIN LEVEL 4 - 6 Last Admin: 08/31/18 01:03 Dose: 50 mg Topiramate (Topamax -) 25 mg PO [facility] Last Admin: 08/30/18 22:32 Dose: 25 mg A/P Acute Pulmonary Emboli likely Provoked Recent C-spine surgery h/o Pericarditis - continue eliquis 10mg BID x 7 days, then decrease to 5mg BID for at least 3 months - repeat echocardiogram in 2-3 months to re-evaluate RV function - can d/c home from pulmonary standpoint
[2018-08-31] MEDS ORDERED: PT OWN MED DRAWER 7, Y5N ONE (20:30)
[2018-08-31] MEDS: DONEPEZIL HCL 5 MG TABLET (FP) PO SCH (22:27)
[2018-08-31] MEDS: TOPIRAMATE 25 MG TABLET (FP) PO SCH (22:27)
[2018-08-31] MEDS: METHOCARBAMOL 500 MG TABLET PO SCH (22:28)
[2018-09-01] MEDS: ACETAMINOPHEN 500 MG TABLET (FP) PO SCH ×2 (06:10→14:25)
[2018-09-01] MEDS ORDERED: PT OWN MED DRAWER 7, Y5N ONE (09:48)
[2018-09-01] MEDS: APIXABAN 5 MG TABLET PO SCH (09:53)
[2018-09-01] MEDS: PANTOPRAZOLE 20 MG TABLET (FP) PO SCH (09:53)
--- NOTE | 2018-09-01 12:34 | PN ---
Progress Note (short form) - Note Progress Note: PULMONARY Denies shortness of breath or chest pain. LE dopplers negative. Echo with mildly reduced RV function. VSS/AFEBRILE Gen: NAD at rest Heart: RRR Lung: decreased breath sounds at the bases Abd: soft, nontender Ext: no edema Active Medications NOTED A/P Acute Pulmonary Emboli likely Provoked Recent C-spine surgery h/o Pericarditis - continue eliquis 10mg BID x 7 days, then decrease to 5mg BID for at least 3 months - repeat echocardiogram in 2-3 months to re-evaluate RV function - can d/c home from pulmonary standpoint Susanna RAMIREZ MD
--- NOTE | 2018-09-01 18:41 | CONSULT ---
Consult - text type - Consultation Consultation Note: NEUROLOGY CONSULTATION is greatly appreciated: This 53 yo RH div woman lives alone. 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 In Nov she tripped and fell in a garage injuring her left knee. Possible head trauma and brief loss of consciousness but she "can't remember." Continued on to work and to the ED where they "concentrated on her knee." Unable to work since that time. Since than she has had frequent, now daily, headaches. Hemicranial or holocranial pressing and throbbing with nausea and photophobia. These can occur "three times a day" and improve somewhat after tylenol 650 mg which she takes 3 x daily." Topiramate 25 mg qd has not helped very much. After the accident she developed numbness, tingling and burning pain in both arms and legs. These begin after sitting > 30 mins and are worst in bed, interrupting sleep. Attributed to "Herniated discs" in the neck and low back but did not improve significantly after multilevel cervical ACD by Dr. Chavarria at [facility] in June. Pt, notes that chest pressure and SOB began the day after the surgery and have continued, actually precipitating this admission. Finally, the patient describes memory changes and poor concentration initially attributed to "Concussion and post-concussive syndrome" and later to "traumatic brain injury" reportedly documented by abnormal Tensor MRI scan. TC: No evidence of external head trauma. Well-healed ACD. Decreased Neck ROM. Neg SLR. NEURO: Awake, alert, Ox 3. MS/Speech: Normal CN II-XII: Normal Motor: No drift or tremor. Formal muscle testing reveals normal strength, tone, bulk and reflexes. Downgoing toes. Coord: No FTN dystaxia Sensory: Normal. Romberg neg. Gait: Stiff, shuffling, variable. Walks on heals, toes and tandems. IMP: Normal neurological exam 1. Possible post-traumatic exacerbation of migraine headaches. 2. Currently converted to chronic daily headache syndrome (CDHS) due to overuse of tylenol causing drug-rebound headaches. 3. Paresthesia and dysesthesiae in the arms and legs, worst at night and with prolonged sitting suggesting Restless Limbs Syndrome (RLS). Suggest: D/C Tylenol and all OTC analgesics. Give Etodolac ER 800 qd after dinner x 1 week then 400 mg after dinner x 1 week. Increase topiramate to 25 mg BID x 2 weeks and, if no worsening of cognitive complaints, to 50 mg BID. Begin Pramipexole 0.125 mg after dinner x 2 days then 0.125 mg after breakfast and dinner x 5 days, then 0.25 mg after breakfast and dinner. Consider trial of wellbutrin XL 150 mg qd x 2 weeks then 300 mg qd for cognitive complaints. Neuro follow-up as out patient. Thank you very much, Jack Soliz MD
--- NOTE | 2018-09-01 18:44 | CONS ---
DATE OF CONSULTATION: 09/01/2018 REASON FOR CONSULTATION: Vaginal bleeding and painful menstruation. HISTORY OF PRESENT ILLNESS: The patient is a 53-year-old pleasant woman, who is 2, para 2, with 2 previous normal vaginal deliveries, with past medical history of GERD and recent anterior cervical diskectomy in June of this year, admitted with complaint of left-sided back pain and cough, and found to have pulmonary emboli. Presently on Eliquis. The patient complains of having heavy vaginal bleeding. Periods are regular but continue to be heavy for 5 days, with occasional small blood clots and severe lower abdominal pain. States that she had a recent Pap smear which was normal. Her pelvic segment at [facility] appeared to be normal myometrium with normal endometrium. PHYSICAL EXAMINATION: General: The patient is comfortable, in bed. Abdomen: Soft, nontender. No masses were palpable. Pelvic: External genitalia were normal. Vagina: A small amount of old dark blood which the patient states she had her period recently. The cervix was clean. No gross lesion. The uterus was slightly prominent, anteverted, nontender. Adnexa: No masses were palpable. IMPRESSION: Menorrhagia and dysmenorrhea, possibly related to adenomyosis, may be worsened now since the patient is on Eliquis. RECOMMENDATIONS: In view of pulmonary emboli, I do not advise any hormonal treatment, but she may benefit from endometrial ablation to reduce or stop her period. All questions were answered. She was advised to follow up in the office for an endometrial biopsy first, followed by endometrial ablation, if the patient desires. At the present time the patient is not anemic, and her hemoglobin and hematocrit were stable. Thank you for the consultation. The patient will be followed up in my office in 2 weeks. CELINA DE LA VEGA M.D. [id number]
[2018-09-01 19:03] VITALS: BP 107/67; PULSE 69; TEMP 98.7
== END 2018-09-01 19:08 | disposition home health service (06) ==
LOC: JER 14:02 → INTOOBSV 22:52 → JERBED 22:52 → J7W 08-30 16:31
PROVIDERS: ADMIT Internal Medicine; ATTEND Internal Medicine
PROC: 3E013GC Introduction of Other Therapeutic Substance into Subcutaneous Tissue, Percutaneous Approach (ICD-10-PCS; principal; 2018-08-29)
DX: I26.99 Other pulmonary embolism without acute cor pulmonale (principal); M54.9 Dorsalgia, unspecified; R01.1 Cardiac murmur, unspecified; K21.9 Gastro-esophageal reflux disease without esophagitis; D64.9 Anemia, unspecified; Z98.1 Arthrodesis status; Z91.018 Allergy to other foods; Z91.012 Allergy to eggs
CPT/HCPCS: 36415; 71046-TC-FY; 71275-TC; 76856-TC; 80048; 80053; 82550; 83735; 84100; 84484; 85025; 85379; 93005; 93010; 93306-TC; 93970-TC; 99284-25; G0378

== ENCOUNTER → 2023-05-18 | Day surgery (SDC) | payer OTHER, BC | END | disposition home or self-care (01) | LOC: JRADUS-SUR 08:05 | PROVIDERS: ATTEND Obstetrics & Gynecology | PROC: 0H9T3ZX Drainage of Right Breast, Percutaneous Approach, Diagnostic (ICD-10-PCS; principal; 2023-05-18) | DX: N60.11 Diffuse cystic mastopathy of right breast (principal); N60.21 Fibroadenosis of right breast | CPT/HCPCS: 19083; 77065-TC; 87899; A4648 ==

== ENCOUNTER 2024-06-18 13:57 | Emergency (ER) | payer OTHER, BC ==
[2024-06-18 14:34] VITALS: BP 153/82; PULSE 74; RESP 16; TEMP 98; BMI 33.5
[2024-06-18 16:18] LABS: BASO % 0.4 % (0-2.0); HEMATOCRIT 35.1 % (32.4-45.2); HEMOGLOBIN 11.8 GM/dL (10.7-15.3); MCHC 33.6 g/dl (32.0-36.0); MEAN CELL VOLUME 89.4 fl (80-96); MEAN PLT VOLUME 8.4 fl (7.5-11.1); MONO % 6.6 % (3.8-10.2); PLATELET COUNT 199 10^3/uL (134-434); RBC 3.92 M/mm3 (3.60-5.2); RDW 13.5 % (11.6-15.6); WHITE BLOOD COUNT 7.1 K/mm3 (4.0-10.0)
[2024-06-18 16:51] LABS: POTASSIUM 4.2 mmol/L (3.5-5.1)
[2024-06-18 16:53] LABS: ALBUMIN 3.5 g/dl (3.4-5.0); BLOOD UREA NITROGEN 16.5 mg/dL (7-18); CALCIUM 9.4 mg/dL (8.5-10.1)
[2024-06-18 16:56] LABS: CREATININE 0.9 mg/dL (0.55-1.3)
[2024-06-18 16:58] LABS: BILIRUBIN,TOTAL 0.3 mg/dL (0.2-1); TOT PROT 7.3 g/dl (6.4-8.2)
[2024-06-18 16:59] LABS: INR 0.99 (0.83-1.09); PROTHROMBIN TIME (PATIENT) 11.2 SEC (9.7-13.0)
[2024-06-18 17:02] LABS: ACTIVATED PTT 28.5 SECONDS (25.2-36.5)
== END 2024-06-18 18:52 | disposition home or self-care (01) ==
LOC: JER 13:57
DX: R06.02 Shortness of breath (principal); R07.9 Chest pain, unspecified
CPT/HCPCS: 36415; 71275-TC; 80053; 84484; 85025; 85610; 85730; 86850; 86900; 86901; 93005; 93010; 99285-25